=== PATIENT | female | born 1990 | race Caucasian/White ===

== ENCOUNTER 2022-10-23 19:16 | Emergency (ER) | payer MEDICAID ==
[~2022-10-23] VITALS: Ht 154.9 cm; Wt 79.0 kg
[2022-10-23 19:30] VITALS: BP 125/81
--- NOTE | 2022-10-23 19:33 | NUR ---
TO LOBBY A/W BED AMBULATORY
--- NOTE | 2022-10-23 22:34 | NUR ---
URINE COLLECTED AND SENT TO LAB
[2022-10-23 22:39] LABS: APPEARANCE,URINE CLEAR (CLEAR); BILIRUBIN,URINE NEGATIVE (NEGATIVE); BLOOD, URINE 3+ (NEGATIVE); COLOR,URINE YELLOW (YELLOW); LEUKOCYTE ESTERASE ,URINE NEGATIVE (NEGATIVE); NITRITE, URINE NEGATIVE (NEGATIVE); UGLUCOSE NEGATIVE (NEGATIVE)
[2022-10-23 22:53] LABS: RBC,URINE 0-5 /HPF (0-5); WBC,URINE 0-5 /HPF (0-5)
--- NOTE | 2022-10-23 22:53 | NUR ---
PT CALLED IN LOBBY AND OUTSIDE WITH NO ANSWER.
--- NOTE | 2022-10-23 23:10 | NUR ---
PT CALLED IN LOBBY AND OUTSIDE WITH NO ANSWER. PT LWBS
[2022-10-24] MEDS ORDERED: NITR100C7 PO (05:50)
== END 2022-10-23 23:10 | disposition left against medical advice (07) ==
LOC: MED 19:16
DX: R10.30 Lower abdominal pain, unspecified (principal); Z53.21 Procedure and treatment not carried out due to patient leaving prior to being seen by health care provider
CPT/HCPCS: 81001

== ENCOUNTER 2022-10-23 23:22 | Emergency (ER) | payer MEDICAID ==
[~2022-10-23] VITALS: Ht 154.9 cm; Wt 79.8 kg
[2022-10-23 23:45] VITALS: BP 128/75
--- NOTE | 2022-10-23 23:49 | NUR ---
to lobby a/w bed ambulatory
--- NOTE | 2022-10-24 02:52 | NUR ---
PT TO 11
--- NOTE | 2022-10-24 02:52 | NUR ---
Wiliam shah in [facility] - 10/24/22 at 0259 by TEVIN PT TO 9
--- NOTE | 2022-10-24 03:03 | NUR ---
Patient being evaluated by physician at bedside.
--- NOTE | 2022-10-24 03:30 | NUR ---
PRINTING PRESS MACHINIST AT BEDSIDE
[2022-10-24 03:41] LABS: BASOPHILS # (AUTO) 0.1 K/uL (0.00-0.22); BASOPHILS % (AUTO) 0.6 % (0.0-2.0); EOSINOPHILS % (AUTO) 0.3 % (0.0-4.0); HEMATOCRIT 35.1 % (36-48); HEMOGLOBIN 11.2 g/dL (12.0-16.0); LYMPHOCYTES # (AUTO) 1.8 K/uL (2.5-16.5); LYMPHOCYTES % (AUTO) 16.8 % (20.5-51.1); MEAN CORPUSCULAR HEMOGLOBIN 23 pg (27-31); MEAN CORPUSCULAR HGB CONC 32 g/dL (33-37); MEAN CORPUSCULAR VOLUME 72.8 fL (80-94); MONOCYTES # (AUTO) 0.8 K/uL (0.8-1.0); MONOCYTES % (AUTO) 7.5 % (1.7-9.3); NEUTROPHILS % (AUTO) 74.8 % (42.2-75.2); PLATELET COUNT (AUTO) 343 K/uL (140-450); RED BLOOD CELL COUNT(AUTO) 4.82 MIL/uL (4.20-5.40); RED CELL DISTRIBUTION WIDTH 17.3 % (11.6-13.7); WHITE BLOOD COUNT (AUTO) 10.7 K/uL (4.8-10.8)
[2022-10-24 03:56] LABS: ANION GAP 14.3 (8-16); CARBON DIOXIDE 24.4 mmol/L (21-32); CREATININE 0.7 mg/dL (0.6-1.3); POTASSIUM 3.7 mmol/L (3.5-5.1)
[2022-10-24] MEDS ORDERED: NITR100C7 PO (05:50)
[2022-10-24 05:55] VITALS: BP 128/75
== END 2022-10-24 05:55 | disposition home or self-care (01) ==
LOC: MED 23:22
DX: O00.91 Unspecified ectopic pregnancy with intrauterine pregnancy (principal)
CPT/HCPCS: 36415; 80048; 84702; 85025; 99283